=== PATIENT | female | born 1965 | race Caucasian/White ===

== ENCOUNTER 2016-09-27 21:08 | Emergency (ER) | payer OTHER ==
[2016-09-27 21:14] VITALS: BP 155/81; PULSE 88; RESP 20; TEMP 99.1
[2016-09-27] MEDS ORDERED: HYDROmorphone 1 MG/ML 1 ML SYRINGE IM STA (21:19)
[2016-09-27] MEDS ORDERED: SULFAMETHOX-TMP 800-160MG 1 EACH TAB PO STA (21:19)
--- NOTE | 2016-09-27 21:22 | ED ---
Skin/Abscess/FB HPI - General Chief complaint: Skin/Abscess/Foreign Body Stated complaint: Abcess Time Seen by Provider: 09/27/16 21:14 Source: patient, RN notes reviewed Mode of arrival: ambulatory Limitations: no limitations - History of Present Illness Initial comments: 50-year-old female presents emergency Department chief complaint of buttocks abscess. Patient states she noticed some some for yesterday worse today. Patient states she's been soaking all day and states that has opened it started draining out pus. states she's had no history of abscesses like this. She has no history of MRSA. Patient states she's had prior back fracture. Patient states she does normally takes Aleve for pain control with states that it's not helping. Patient denies any fever or chills patient offers no other complaints. - Related Data Home Medications Medication Instructions Recorded Confirmed Albuterol Inhaler [Ventolin Hfa 1 - 2 puff INHALATION Q6HR PRN 01/08/16 02/02/16 Inhaler] Naproxen Sodium [Aleve] 220 mg PO DAILY 01/08/16 02/02/16 Previous Rx's Medication Instructions Recorded Hydrocodone/Acetaminophen [[place] 1 tab PO Q6HR PRN #20 tab 09/27/16 5-325] Sulfamethox-Tmp 800-160Mg [Bactrim 1 each PO Q12HR #20 tab 09/27/16 Ds] Allergies Allergy/AdvReac Type Severity Reaction Status Date / Time ciprofloxacin [From Cipro] AdvReac PAIN IN Verified 09/27/16 21:13 ARMS AND LEGS Review of Systems ROS Statement: Those systems with pertinent positive or pertinent negative responses have been documented in the HPI. ROS Other: All systems not noted in ROS Statement are negative. Past Medical History Past Medical History: Asthma, COPD Additional Past Medical History / Comment(s): vitamin d deficiency; hemorrhoids. CHANGE IN BOWEL MOVENTS-CONSTIPATION. HAS NOTICED SOME BLOOD WITH RECENT BM History of Any Multi-Drug Resistant Organisms: None Reported Past Surgical History: Orthopedic Surgery Additional Past Surgical History / Comment(s): RT BUNIONECTOMY. COLONOSCOPY Past Anesthesia/Blood Transfusion Reactions: Motion Sickness Past Psychological History: Anxiety, Depression Smoking Status: Current some day smoker Past Alcohol Use History: None Reported Past Drug Use History: None Reported - Past Family History Father Family Medical History: Cancer General Exam Limitations: no limitations General appearance: alert, in no apparent distress Respiratory exam: Present: normal lung sounds bilaterally. Absent: respiratory distress, wheezes, rales, rhonchi, stridor Cardiovascular Exam: Present: regular rate, normal rhythm, normal heart sounds. Absent: systolic murmur, diastolic murmur, rubs, gallop, clicks GI/Abdominal exam: Present: soft, normal bowel sounds. Absent: distended, tenderness, guarding, rebound, rigid Skin exam: Present: warm, dry, intact, normal color, other (Left buttocks there is approximately a 2 cm area of erythema firm nonfluctuant with open wound in the center). Absent: rash Course Vital Signs 09/27/16 21:11 Temperature 99.1 F Pulse Rate 88 Respiratory 20 Rate Blood Pressure 155/81 O2 Sat by Pulse 98 Oximetry Medical Decision Making - Medical Decision Making 50-year-old male presented for buttocks abscess. Patient has open and draining abscess. Patient will be given IM pain medications here in emergency department given a dose of Bactrim and discharged on [place] and Bactrim return parameters were discussed with did discuss continuation of warm soaks. Disposition Clinical Impression: Abscess of buttock, left Disposition: HOME SELF-CARE Condition: Stable Instructions: Abscess (ED) Additional Instructions: Please return to the Emergency Department if symptoms worsen or any other concerns. Prescriptions: Hydrocodone/Acetaminophen [[place] 5-325] 1 tab PO Q6HR PRN #20 tab PRN Reason: Pain Sulfamethox-Tmp 800-160Mg [Bactrim Ds] 1 each PO Q12HR #20 tab Referrals: Jennie Amezcua MD [Primary Care Provider] - 1-2 days Time of Disposition: 21:22
== END 2016-09-27 22:05 | disposition home or self-care (01) ==
LOC: EC 21:08
DX: L02.31 Cutaneous abscess of buttock (principal); F17.200 Nicotine dependence, unspecified, uncomplicated; Z79.1 Long term (current) use of non-steroidal anti-inflammatories (NSAID); Z88.1 Allergy status to other antibiotic agents
CPT/HCPCS: 99282; 96372; J1170

== ENCOUNTER 2017-06-22 20:25 | Emergency (ER) | payer OTHER ==
[2017-06-22 20:35] VITALS: BP 115/77; PULSE 87; RESP 20; TEMP 98.2
[2017-06-22] MEDS ORDERED: ACETAMINOPHEN TAB 500 MG TAB PO STA (21:02)
--- NOTE | 2017-06-22 21:23 | XR ---
EXAMINATION TYPE: XR finger LT DATE OF EXAM: 06/22/2017 COMPARISON: NONE HISTORY: Abdomen pain TECHNIQUE: 3 views FINDINGS: There is spurring at the IP joint. There is spurring at the first carpometacarpal joint. I see no fracture nor dislocation. IMPRESSION: Osteoarthritis. No fracture.
[2017-06-22] MEDS ORDERED: DIPH,PERTUS(ACELL)TETVAC-LF 0.5 ML VIAL IM ONE (21:33)
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
== END 2017-06-22 22:08 | disposition home or self-care (01) ==
LOC: EC 20:25
DX: S61.112A Laceration without foreign body of left thumb with damage to nail, initial encounter (principal); Z23 Encounter for immunization; F32.9 Major depressive disorder, single episode, unspecified; F41.9 Anxiety disorder, unspecified; F17.200 Nicotine dependence, unspecified, uncomplicated; Z79.899 Other long term (current) drug therapy; Z88.1 Allergy status to other antibiotic agents; W23.0XXA Caught, crushed, jammed, or pinched between moving objects, initial encounter; Y92.009 Unspecified place in unspecified non-institutional (private) residence as the place of occurrence of the external cause
CPT/HCPCS: 90471; 90715; 99283

== ENCOUNTER → 2019-01-21 | Outpatient (CLI) | payer OTHER ==
--- NOTE | 2019-01-21 20:35 | MR ---
EXAMINATION TYPE: MR knee RT wo con DATE OF EXAM: 01/21/2019 COMPARISON: Plain films unavailable HISTORY: Right knee pain TECHNIQUE: Multiplanar, multisequence imaging of the right knee is performed without IV contrast. FINDINGS: MEDIAL MENISCUS: Abnormal increased signal present within the posterior horn of the medial meniscus i s likely degenerative, there may be some associated calcification. Suspect a root anchor tear is pres ent posteriorly, the appearance is discontinuous LATERAL MENISCUS: Anterior and posterior horns are intact without tear. CRUCIATE LIGAMENTS: The anterior and posterior cruciate ligaments are intact and unremarkable. COLLATERAL LIGAMENTS: The medial collateral ligament and lateral collateral ligament complex are inta ct and unremarkable. EXTENSOR MECHANISM: Visualized quadriceps and patellar tendons are intact. EFFUSION: Suprapatellar joint effusion is present POPLITEAL CYST: No popliteal/mahoney cyst. TRICOMPARTMENT SPACES: There is joint space loss present tricompartmentally CARTILAGE: Grade 3 to grade IV chondromalacia at the posterior patella, medial compartment greater th an lateral compartment BONE MARROW SIGNAL: Subchondral marrow signal changes are present in the medial compartment greater t lozoya lateral OTHER: Tricompartmental marginal spurring present. There are foci of low signal on T1 and T2-weighte d sequences scattered within the joint, greatest in the suprapatellar location measuring 2.6 cm x 1.5 cm x 2.1 cm, smaller focus present at the anterior aspect of the knee joint and multiple foci presen t within the posterior joint space laterally, posterior to the distal metaphyseal femur likely repres ent loose bodies IMPRESSION: Severe osteoarthritis. Root anchor tear posterior horn medial meniscus. Multiple loose bodies suspect ed.
== END | disposition home or self-care (01) ==
LOC: RADMRIMAIN 06:47
PROVIDERS: ATTEND Orthopaedic Surgery
DX: M17.11 Unilateral primary osteoarthritis, right knee (principal); S83.241A Other tear of medial meniscus, current injury, right knee, initial encounter

== ENCOUNTER 2019-02-11 09:44 | Emergency (ER) | payer OTHER ==
[2019-02-11] MEDS ORDERED: SODIUM CHLORIDE 0.9% 1,000 ML IV STA (10:25)
[2019-02-11] MEDS ORDERED: ONDANSETRON 4 MG/2 ML VIAL IVP STA ×2 (10:25→11:27)
--- NOTE | 2019-02-11 10:28 | ED ---
Nausea/Vomiting/Diarrhea HPI - General Chief complaint: Nausea/Vomiting/Diarrhea Stated complaint: vomiting Time Seen by Provider: 02/11/19 10:10 Source: patient Mode of arrival: ambulatory Limitations: no limitations - History of Present Illness Initial comments: Patient is a 53-year-old female presenting to the emergency Department with complaints of nausea, vomiting, diarrhea since early this morning. Patient states her symptoms came on all of a sudden approximately 12:30 AM. Patient states her daughter had same symptoms approximately one week ago. Patient is complaining of abdominal pain but describes it as very generalized from vomiting. Patient denies any abdominal surgeries. Patient denies any fever, cough, chest pain. Patient has no other complaints at this time. Upon arrival to the ER, patient was actively vomiting. Vital signs are stable. - Related Data Home Medications Medication Instructions Recorded Confirmed Naproxen Sodium [Aleve] 220 mg PO DAILY PRN 01/08/16 06/22/17 ALPRAZolam [Xanax] 0.25 mg PO DAILY PRN 06/22/17 06/22/17 Sertraline HCl [Zoloft] 25 mg PO DAILY 06/22/17 06/22/17 Previous Rx's Medication Instructions Recorded Dicyclomine [Bentyl] 20 mg PO TID #20 tablet 02/11/19 Ondansetron Odt [Zofran Odt] 4 mg PO Q8HR PRN #10 tab 02/11/19 Allergies Allergy/AdvReac Type Severity Reaction Status Date / Time ciprofloxacin [From Cipro] AdvReac PAIN IN Verified 06/22/17 20:48 ARMS AND LEGS Review of Systems ROS Statement: Those systems with pertinent positive or pertinent negative responses have been documented in the HPI. ROS Other: All systems not noted in ROS Statement are negative. Past Medical History Past Medical History: Asthma, COPD Additional Past Medical History / Comment(s): vitamin d deficiency; hemorrhoids. CHANGE IN BOWEL MOVENTS-CONSTIPATION. HAS NOTICED SOME BLOOD WITH RECENT BM History of Any Multi-Drug Resistant Organisms: None Reported Past Surgical History: Orthopedic Surgery Additional Past Surgical History / Comment(s): RT BUNIONECTOMY. COLONOSCOPY Past Anesthesia/Blood Transfusion Reactions: Motion Sickness Past Psychological History: Anxiety, Depression Smoking Status: Current every day smoker Past Alcohol Use History: None Reported Past Drug Use History: Marijuana - Past Family History Father Family Medical History: Cancer General Exam - General Exam Comments Initial Comments: GENERAL: Patient is curled up on her side, actively dry heaving. HEAD: Atraumatic, normocephalic. EYES: Pupils equal round and reactive to light, extraocular movements intact, sclera anicteric, conjunctiva are normal. ENT: Dry mucous membranes. NECK: Normal range of motion, supple without lymphadenopathy or JVD. LUNGS: Breath sounds clear to auscultation bilaterally and equal. No wheezes rales or rhonchi. HEART: Regular rate and rhythm without murmurs, rubs or gallops. ABDOMEN: Patient has generalized abdominal soreness, no severe tenderness in any of the 4 quadrants. Soft, hyperactive bowel sounds. No guarding, no rebound. No masses appreciated. : Deferred EXTREMITIES: Normal range of motion, no pitting or edema. No clubbing or cyanosis. NEUROLOGICAL: Normal speech, normal gait. SKIN: Warm, Dry, normal turgor, no rashes or lesions noted. Limitations: no limitations Course Vital Signs 02/11/19 02/11/19 02/11/19 10:04 11:41 12:40 Temperature 97.6 F 98 F Pulse Rate 71 56 L 63 Respiratory 20 18 18 Rate Blood Pressure 136/76 131/67 137/82 O2 Sat by Pulse 99 99 98 Oximetry Medical Decision Making - Medical Decision Making Patient is a 53-year-old female presenting with nausea, vomiting 12 hours. Patient has mild diffuse abdominal pain, no severe pain or tenderness on exam. Lab work shows leukocytosis at 16.3, likely reactive. Rest of lab work is unremarkable. Patient was given fluids, Zofran and Reglan and she has been resting comfortably. Patient is stable for discharge at this time. Patient will be discharged home with Zofran and Bentyl. Patient is agreement with this plan of care. Return parameters were discussed with the patient she verbalized understanding. Discussed with Dr. Day. - Lab Data Result diagrams: 02/11/19 10:40 02/11/19 10:40 Lab Results 02/11/19 02/11/19 Range/Units 10:40 10:40 WBC 16.3 H (3.8-10.6) k/uL RBC 5.07 (3.80-5.40) m/uL Hgb 14.9 (11.4-16.0) gm/dL Hct 44.3 (34.0-46.0) % MCV 87.3 (80.0-100.0) fL MCH 29.3 (25.0-35.0) pg MCHC 33.6 (31.0-37.0) g/dL RDW 13.1 (11.5-15.5) % Plt Count 357 (150-450) k/uL Neutrophils % 93 % Lymphocytes % 5 % Monocytes % 2 % Eosinophils % 0 % Basophils % 0 % Neutrophils # 15.1 H (1.3-7.7) k/uL Lymphocytes # 0.8 L (1.0-4.8) k/uL Monocytes # 0.3 (0-1.0) k/uL Eosinophils # 0.0 (0-0.7) k/uL Basophils # 0.0 (0-0.2) k/uL Sodium 141 (137-145) mmol/L Potassium 4.2 (3.5-5.1) mmol/L Chloride 107 (98-107) mmol/L Carbon Dioxide 25 (22-30) mmol/L Anion Gap 9 mmol/L BUN 18 H (7-17) mg/dL Creatinine 0.68 (0.52-1.04) mg/dL Est GFR (CKD-EPI)AfAm >90 (>60 ml/min/1.73 sqM) Est GFR (CKD-EPI)NonAf >90 (>60 ml/min/1.73 sqM) Glucose 159 H (74-99) mg/dL Calcium 9.6 (8.4-10.2) mg/dL Total Bilirubin 0.4 (0.2-1.3) mg/dL AST 28 (14-36) U/L ALT 29 (9-52) U/L Alkaline Phosphatase 88 (38-126) U/L Total Protein 7.2 (6.3-8.2) g/dL Albumin 4.5 (3.5-5.0) g/dL Amylase 50 (30-110) U/L Lipase 64 (23-300) U/L Disposition Clinical Impression: Gastroenteritis, Nausea vomiting and diarrhea Disposition: HOME SELF-CARE Condition: Stable Instructions (If sedation given, give patient instructions): Acute Nausea and Vomiting (ED) Additional Instructions: Please return to the Emergency Department if symptoms worsen or any other concerns. Take Zofran as needed for nausea. And Bentyl as needed for abdominal cramping. Prescriptions: Dicyclomine [Bentyl] 20 mg PO TID #20 tablet Ondansetron Odt [Zofran Odt] 4 mg PO Q8HR PRN #10 tab PRN Reason: Nausea Is patient prescribed a controlled substance at d/c from ED?: No Referrals: Jennie Amezcua MD [Primary Care Provider] - 1-2 days
[2019-02-11 11:03] LABS: Basophils % (A) 0 %; Eosinophils % (A) 0 %; HCT 44.3 % (34.0-46.0); HGB 14.9 gm/dL (11.4-16.0); Lymphocytes # (A) 0.8 k/uL (1.0-4.8); Lymphocytes % (A) 5 %; MCH 29.3 pg (25.0-35.0); MCHC 33.6 g/dL (31.0-37.0); MCV 87.3 fL (80.0-100.0); Mean Platelet Volume 6.5; Monocytes # (A) 0.3 k/uL (0-1.0); Monocytes % (A) 2 %; Neutrophils # (A) 15.1 k/uL (1.3-7.7); Neutrophils % (A) 93 %; Platelet Count 357 k/uL (150-450); RBC 5.07 m/uL (3.80-5.40); RDW 13.1 % (11.5-15.5); WBC 16.3 k/uL (3.8-10.6)
[2019-02-11 11:10] LABS: ALT 29 U/L (9-52); AST 28 U/L (14-36); African American GFR (CKD) >90 (>60 ml/min/1.73 sqM); Albumin 4.5 g/dL (3.5-5.0); Alkaline Phosphatase 88 U/L (38-126); Amylase 50 U/L (30-110); Anion Gap 9 mmol/L; Blood Urea Nitrogen 18 mg/dL (7-17); Calcium 9.6 mg/dL (8.4-10.2); Carbon Dioxide 25 mmol/L (22-30); Chloride 107 mmol/L (98-107); Glucose 159 mg/dL (74-99); Non-African American GFR(CKD) >90 (>60 ml/min/1.73 sqM); Potassium 4.2 mmol/L (3.5-5.1); Sodium 141 mmol/L (137-145); Total Bilirubin 0.4 mg/dL (0.2-1.3); Total Protein 7.2 g/dL (6.3-8.2)
[2019-02-11 11:42] VITALS: RESP 18
[2019-02-11] MEDS ORDERED: METOCLOPRAMIDE 5 MG/ML 2 ML VIAL IVP STA (12:08)
[2019-02-11] MEDS ORDERED: ONDANSETRON 4 MG ODT STARTER PACK 2 TAB BTL PO STA (12:12)
[2019-02-11 12:41] VITALS: BP 137/82; PULSE 63; TEMP 98
== END 2019-02-11 12:40 | disposition home or self-care (01) ==
LOC: EC 09:44
DX: K52.9 Noninfective gastroenteritis and colitis, unspecified (principal); D72.829 Elevated white blood cell count, unspecified; F32.9 Major depressive disorder, single episode, unspecified; F41.9 Anxiety disorder, unspecified; F17.200 Nicotine dependence, unspecified, uncomplicated; Z88.1 Allergy status to other antibiotic agents; Z79.899 Other long term (current) drug therapy
CPT/HCPCS: 36415; 80053; 82150; 83690; 85025; 99284; 96374; 96375; 96376; 96361; J2765; J2405; S0119

== ENCOUNTER → 2019-04-05 | Outpatient (CLI) | payer OTHER ==
--- NOTE | 2019-04-08 09:47 | MM ---
Reason for exam: screening (asymptomatic). Last mammogram was performed 3 years and 7 months ago. Physical Findings: A clinical breast exam by your physician is recommended on an annual basis and results should be correlated with mammographic findings. MG Screening Mammo w CAD Bilateral CC and MLO view(s) were taken. Prior study comparison: September 15, 2015, bilateral MG screening mammo w CAD. May 20, 2014, bilateral MG screening mammo w CAD. The breast tissue is heterogeneously dense. This may lower the sensitivity of mammography. Benign appearing bilateral calcifications. No suspicious abnormality. No significant changes when compared with prior studies. ASSESSMENT: Benign, BI-RAD 2 RECOMMENDATION: Routine screening mammogram of both breasts in 1 year.
== END | disposition home or self-care (01) ==
LOC: RADMAMWWP 09:53
PROVIDERS: ATTEND Family Medicine
DX: Z12.31 Encounter for screening mammogram for malignant neoplasm of breast (principal)
CPT/HCPCS: 77067

== ENCOUNTER 2019-05-25 12:18 | Observation (INO) | payer OTHER ==
[2019-05-25] MEDS ORDERED: ONDANSETRON 4 MG/2 ML VIAL IVP STA (13:04)
[2019-05-25] MEDS ORDERED: MECLIZINE 12.5 MG TAB PO STA (13:04)
[2019-05-25] MEDS ORDERED: SODIUM CHLORIDE 0.9% 1,000 ML IV STA (13:04)
[2019-05-25 13:37] LABS: Basophils # (A) 0.1 k/uL (0-0.2); Basophils % (A) 1 %; Eosinophils # (A) 0.5 k/uL (0-0.7); Eosinophils % (A) 3 %; HCT 47.9 % (34.0-46.0); HGB 15.5 gm/dL (11.4-16.0); Lymphocytes % (A) 13 %; MCH 28.7 pg (25.0-35.0); MCHC 32.3 g/dL (31.0-37.0); MCV 88.9 fL (80.0-100.0); Mean Platelet Volume 7.5; Monocytes # (A) 0.6 k/uL (0-1.0); Monocytes % (A) 4 %; Neutrophils # (A) 11.5 k/uL (1.3-7.7); Neutrophils % (A) 77 %; Platelet Count 355 k/uL (150-450); RBC 5.39 m/uL (3.80-5.40); RDW 13.2 % (11.5-15.5); WBC 14.9 k/uL (3.8-10.6)
[2019-05-25 13:45] LABS: ALT 21 U/L (4-34); AST 30 U/L (14-36); African American GFR (CKD) >90 (>60 ml/min/1.73 sqM); Albumin 4.3 g/dL (3.5-5.0); Alkaline Phosphatase 84 U/L (38-126); Anion Gap 7 mmol/L; Blood Urea Nitrogen 13 mg/dL (7-17); Calcium 9.3 mg/dL (8.4-10.2); Carbon Dioxide 29 mmol/L (22-30); Chloride 104 mmol/L (98-107); Glucose 99 mg/dL (74-99); Non-African American GFR(CKD) >90 (>60 ml/min/1.73 sqM); Potassium 4.3 mmol/L (3.5-5.1); Sodium 140 mmol/L (137-145); Total Bilirubin 0.2 mg/dL (0.2-1.3); Total Protein 6.9 g/dL (6.3-8.2)
--- NOTE | 2019-05-25 13:50 | ED ---
Dizziness HPI - General Chief Complaint: Dizziness Stated Complaint: Vomiting/Dizzy Time Seen by Provider: 05/25/19 12:20 Source: patient Mode of arrival: ambulatory Limitations: no limitations - History of Present Illness Initial Comments: The patient is a 53 year old female with past medical history of depression presents emergency room with reported vertiginous symptoms. She states that she was treated for an ear infection approximately 10 days ago. She went to an urgent care complaining of left ear pain. She is placed on Augmentin, certrizine and a nasal spray. States that she is on her last dose of antibiotics. She awoke this morning with significant room spinning which is worse when she changes positions. No history of vertigo in the past. Admits that the left ear pain has only slightly improved and now she has left maxillary pain. She denies any hearing changes. No headaches or visual changes. Denies any fevers or chills. Admits to nausea and vomiting. Denies hematemesis. No chest pain or shortness of breath. Denies syncope or presyncope. No ataxia with ambulation. Denies abdominal pain. No changes in her bowel or bladder habits. No recent chiropractic manipulations. There are no other alleviating, precipitating or modifying factors - Related Data Home Medications Medication Instructions Recorded Confirmed Naproxen Sodium [Aleve] 440 mg PO BID PRN 01/08/16 05/25/19 Cetirizine HCl 10 mg PO DAILY 05/25/19 05/25/19 Fluticasone Propionate [Flonase 1 spray EA NOSTRIL BID 05/25/19 05/25/19 Allergy Relief] Sertraline HCl [Zoloft] 100 mg PO HS 05/25/19 05/25/19 Zinc 50 mg PO DAILY 05/25/19 05/25/19 Previous Rx's Medication Instructions Recorded Cefuroxime Axetil [Ceftin] 500 mg PO BID 5 Days #10 tab 05/27/19 Allergies Allergy/AdvReac Type Severity Reaction Status Date / Time ciprofloxacin [From Cipro] AdvReac PAIN IN Verified 05/25/19 16:40 ARMS AND LEGS Review of Systems ROS Statement: Those systems with pertinent positive or pertinent negative responses have been documented in the HPI. ROS Other: All systems not noted in ROS Statement are negative. Past Medical History Past Medical History: Asthma, COPD Additional Past Medical History / Comment(s): vitamin d deficiency; hemorrhoids. CHANGE IN BOWEL MOVENTS-CONSTIPATION. HAS NOTICED SOME BLOOD WITH RECENT BM History of Any Multi-Drug Resistant Organisms: None Reported Past Surgical History: Orthopedic Surgery Additional Past Surgical History / Comment(s): RT BUNIONECTOMY. COLONOSCOPY Past Anesthesia/Blood Transfusion Reactions: Motion Sickness Past Psychological History: Anxiety, Depression Smoking Status: Current every day smoker Past Alcohol Use History: None Reported Past Drug Use History: Marijuana - Past Family History Father Family Medical History: Cancer General Exam Limitations: no limitations General appearance: alert, in no apparent distress Head exam: Present: atraumatic, normocephalic, normal inspection Eye exam: Present: normal appearance, PERRL, EOMI. Absent: scleral icterus, c onjunctival injection, periorbital swelling ENT exam: Present: mucous membranes moist, TM's normal bilaterally, normal external ear exam, other (tenderness left maxillary and left frontal sinuses) Neck exam: Present: normal inspection. Absent: tenderness, meningismus, lymphadenopathy Respiratory exam: Present: normal lung sounds bilaterally. Absent: respiratory distress, wheezes, rales, rhonchi, stridor Cardiovascular Exam: Present: regular rate, normal rhythm, normal heart sounds. Absent: systolic murmur, diastolic murmur, rubs, gallop, clicks GI/Abdominal exam: Present: soft, normal bowel sounds. Absent: distended, tenderness, guarding, rebound, rigid Extremities exam: Present: normal inspection, full ROM, normal capillary refill. Absent: tenderness, pedal edema, joint swelling, calf tenderness Back exam: Present: normal inspection Neurological exam: Present: alert, oriented X3, CN II-XII intact Psychiatric exam: Present: normal affect, normal mood Skin exam: Present: warm, dry, intact, normal color. Absent: rash Course Vital Signs 05/25/19 05/25/19 05/25/19 12:21 13:37 14:59 Temperature 97.6 F Pulse Rate 60 50 L 57 L Respiratory 18 16 16 Rate Blood Pressure 169/82 114/73 106/68 O2 Sat by Pulse 99 100 98 Oximetry 05/25/19 05/25/19 16:00 17:07 Temperature 97.8 F 98.1 F Pulse Rate 52 L 53 L Respiratory 16 16 Rate Blood Pressure 111/76 111/69 O2 Sat by Pulse 97 98 Oximetry EKG Findings - EKG Comments: EKG Findings:: EKG demonstrates a sinus bradycardia with a ventricular rate of 50. AK interval 154. QRS 88. QTC of 446. No acute ST segment elevations or depressions concerning for ischemic changes. No signs of high degree block. Medical Decision Making - Medical Decision Making Upon arrival the patient was placed into room 26. A thorough history and physical exam was performed. No rotary or horizontal nystagmus. Peripheral IV was established the patient was given informal grams of Zofran for nausea and 25 mg of meclizine and 4 vertiginous symptoms. Laboratory studies were conducted. White blood count is 14.9. Remainder of the laboratory studies are normal. I reevaluated the patient after a liter bolus of normal saline and the patient continues to report vertiginous symptoms. Because of this I did provide her with 5 mg of Valium and performed a CT of her brain as well as CT angiography for her vertiginous symptoms. He demonstrates no hemodynamically significant stenosis, focal occlusion or aneurysmal outpouching. CT of the patient's brain demonstrates no acute intracranial hemorrhage, mass effect or midline shift. Severe left knee x-ray sinusitis, more moderate of the ethmoid sinuses and right maxillary sinus. Complexity of the debris within the left maxillary sinus and bowing of the medial wall could represent an underlying mucocele or atypical infection with hemorrhage and debris. Alternatively fungal infection. I discussed the case with the patient and she does report to continued improvement in her symptoms. As the patient has failed outpatient therapy for these symptoms I did recommend inpatient treatment with antibiotics. The patient was given a dose of Zosyn after blood cultures were obtained. I called and discussed the case with Dr. Mendes who accepted admission for the patient. I will place ENT on consult. The patient is awaiting a bed on the floor - Lab Data Result diagrams: 05/27/19 07:12 05/27/19 07:12 Lab Results 05/25/19 05/25/19 05/25/19 Range/Units 13:24 13:24 13:24 WBC 14.9 H (3.8-10.6) k/uL RBC 5.39 (3.80-5.40) m/uL Hgb 15.5 (11.4-16.0) gm/dL Hct 47.9 H (34.0-46.0) % MCV 88.9 (80.0-100.0) fL MCH 28.7 (25.0-35.0) pg MCHC 32.3 (31.0-37.0) g/dL RDW 13.2 (11.5-15.5) % Plt Count 355 (150-450) k/uL Neutrophils % 77 % Lymphocytes % 13 % Monocytes % 4 % Eosinophils % 3 % Basophils % 1 % Neutrophils # 11.5 H (1.3-7.7) k/uL Lymphocytes # 2.0 (1.0-4.8) k/uL Monocytes # 0.6 (0-1.0) k/uL Eosinophils # 0.5 (0-0.7) k/uL Basophils # 0.1 (0-0.2) k/uL Sodium 140 (137-145) mmol/L Potassium 4.3 (3.5-5.1) mmol/L Chloride 104 (98-107) mmol/L Carbon Dioxide 29 (22-30) mmol/L Anion Gap 7 mmol/L BUN 13 (7-17) mg/dL Creatinine 0.70 (0.52-1.04) mg/dL Est GFR (CKD-EPI)AfAm >90 (>60 ml/min/1.73 sqM) Est GFR (CKD-EPI)NonAf >90 (>60 ml/min/1.73 sqM) Glucose 99 (74-99) mg/dL Calcium 9.3 (8.4-10.2) mg/dL Total Bilirubin 0.2 (0.2-1.3) mg/dL AST 30 (14-36) U/L ALT 21 (4-34) U/L Alkaline Phosphatase 84 (38-126) U/L Troponin I <0.012 (0.000-0.034) ng/mL Total Protein 6.9 (6.3-8.2) g/dL Albumin 4.3 (3.5-5.0) g/dL Disposition Clinical Impression: Vertigo, Left maxillary sinusitis, Failure of outpatient treatment Disposition: ADMITTED IP TO THIS [facility] Condition: Stable Is patient prescribed a controlled substance at d/c from ED?: No Decision to Admit Reason: Admit from EC Decision Date: 05/25/19 Decision Time: 16:02
[2019-05-25] MEDS ORDERED: DIAZEPAM 5 MG/ML 2 ML INJ IVP STA (14:17)
--- NOTE | 2019-05-25 15:00 | CT ---
EXAMINATION TYPE: CT brain wo con DATE OF EXAM: 05/25/2019 COMPARISON: NONE HISTORY: dizziness and vomiting CT DLP: 1097.8 mGycm. Automated Exposure Control for Dose Reduction was Utilized. TECHNIQUE: CT scan of the head is performed without contrast. FINDINGS: There is no acute intracranial hemorrhage, mass effect, or midline shift identified. The ventricles and sulci are within normal limits in size. The globes are intact and unremarkable. There is high density complex mixed attenuation debris filling the entire visualized portion of the l eft maxillary sinus with bowing of the medial wall of the left maxillary sinus and extension of mucos al thickening into the nasopharynx. Moderate mucosal thickening is also seen in the ethmoid sinuses a nd polypoid mucosal thickening of the right maxillary sinus. Sphenoid sinuses and frontal sinuses as well as mastoid air cells are well aerated. IMPRESSION: 1. No acute intracranial hemorrhage, mass effect, or midline shift is seen. 2. Severe left maxillary sinusitis, more moderate of the ethmoid sinuses and right maxillary sinus. C omplexity of the debris within the left maxillary sinus and bowing of the medial wall could represent an underlying mucocele or atypical infection with hemorrhage and debris. Alternatively fungal infect ion is possible.
--- NOTE | 2019-05-25 15:18 | CT ---
EXAMINATION TYPE: CT angio head neck DATE OF EXAM: 05/25/2019 HISTORY: Dizziness COMPARISON: CT brain of the same day CT DLP: 420.5 mGycm. Automated Exposure Control for Dose Reduction was Utilized. TECHNIQUE: CTA scan of the neck is performed , patient injected with 100 mL of Isovue 370, axial naye ges are obtained, coronal and sagittal reformatted images are reviewed. Three-D reconstructed images are created on an independent workstation and reviewed. FINDINGS: Carotid/Vascular Structures: There is a conventional three-vessel branch pattern of the aortic arch. The common carotid arteries, carotid bulbs, and cervical portions of the internal carotid arteries ar e patent and unremarkable. The vertebral arteries are patent and codominant. Vertebrobasilar system i s patent and unremarkable. Intracranial vasculature demonstrates no hemodynamically significant steno sis or focal occlusion. Left posterior commuting artery is not seen and [place] cannot be co nsidered intact. No sizable aneurysm is seen of the major intracranial vasculature. Other: Findings in the brain are discussed on the CT brain of the dislocation of the same date. Lung apices are well aerated. Mild degenerative change of the cervical spine. IMPRESSION: No hemodynamically significant stenosis, focal occlusion or aneurysmal outpouching of th e major arterial vasculature of the head or neck.
[2019-05-25] MEDS ORDERED: PIPERACILLIN-TAZOBACTAM 3.375 GM in SODIUM CHLORIDE 0.9% 100 ML IVPB STA (15:29)
[2019-05-25] MEDS ORDERED: NALOXONE 0.4 MG/ML 1 ML VIAL IV PRN (16:02)
[2019-05-25] MEDS ORDERED: ONDANSETRON 4 MG/2 ML VIAL IVP PRN (16:02)
[2019-05-25] MEDS: SODIUM CHLORIDE 0.9% 1,000 ML IV SCH ×2 (16:42→23:54)
[2019-05-25] MEDS: SERTRALINE 100 MG TAB PO SCH (20:28)
[2019-05-25] MEDS: MECLIZINE 25 MG TAB PO PRN (20:28)
--- NOTE | 2019-05-25 22:55 | P.HPIM ---
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 Patient is being treated for left ear infectionfor the past 10 days. Patient was seen at urgent care facility and was started on antibiotics in the form of Augmentin, citrizine and nasal spray. Patient completed antibiotic course. She woke up in the morning withsensation of room spinning and dizziness and lightheadedness. Patient was also having left ear pain. No headache. Denied any visual changes or decreased hearing. No fever no chills. Patient did have nausea at home and had an episode ofvomiting while in the ER. No complaints of chest pain or short. No Abdominal pain or diarrhea. No dysuria or hematuria. eKG showed sinus bradycardia. CT head showed no acute intracranial process. Severe left maxillary sinusitis. Right moderateethmoid and right maxillary sinusitis.complexity of the Debris wit hin theleft maxillary sinus. WBC 14.9. remaining electrolytes within normal limits. Review of Systems Constitutional: Patient denies any fever or chills . No generalized weakness or weight loss. Abdomen: Patient denied nausea vomiting and diarrhea and abdominal pain. Cardiovascular: Patient denies any chest pain or short of breath no palpitations. Respiratory: patient denied any cough is from production. No shortness of breath Neurologic: Patient denied any numbness or tingling headache.left ear pain. Dizziness and lightheadedness and roomspinning sensation Musculoskeletal: Patient denies any complaints of joint swelling or deformity. Skin: Negative Psychiatric: Negative Endocrine: No heat or cold intolerance. No recent weight gain. Genitourinary: No dysuria or hematuria. All other 14 point ROS negative except the above Past Medical History Past Medical History: Asthma, COPD Additional Past Medical History / Comment(s): vitamin d deficiency; History of Any Multi-Drug Resistant Organisms: None Reported Past Surgical History: Orthopedic Surgery Additional Past Surgical History / Comment(s): RT BUNIONECTOMY. COLONOSCOPY Past Anesthesia/Blood Transfusion Reactions: Motion Sickness Past Psychological History: Anxiety, Depression Smoking Status: Current every day smoker Past Alcohol Use History: None Reported Additional Past Alcohol Use History / Comment(s): SMOKING 1/2 PPD OFF AND ON SINCE AGE 17 Past Drug Use History: Marijuana - Past Family History Father Family Medical History: Cancer Medications and Allergies Home Medications Medication Instructions Recorded Confirmed Type Naproxen Sodium [Aleve] 440 mg PO BID PRN 01/08/16 05/25/19 History Amoxicillin/Potassium Clav 1 tab PO BID 05/25/19 05/25/19 History [Augmentin 875-125 Tablet] Cetirizine HCl 10 mg PO DAILY 05/25/19 05/25/19 History Fluticasone Propionate [Flonase 1 spray EA NOSTRIL BID 05/25/19 05/25/19 History Allergy Relief] Sertraline HCl [Zoloft] 100 mg PO HS 05/25/19 05/25/19 History Zinc 50 mg PO DAILY 05/25/19 05/25/19 History Allergies Allergy/AdvReac Type Severity Reaction Status Date / Time ciprofloxacin [From Cipro] AdvReac PAIN IN Verified 05/25/19 16:40 ARMS AND LEGS Physical Exam Vitals: Vital Signs Temp Pulse Pulse Resp BP BP Pulse Ox 05/25/19 20:00 18 05/25/19 19:15 97.6 F 50 L 17 127/73 96 05/25/19 17:24 97.4 F L 52 L 14 113/68 97 05/25/19 17:07 98.1 F 53 L 16 111/69 98 05/25/19 16:00 97.8 F 52 L 16 111/76 97 05/25/19 14:59 57 L 16 106/68 98 05/25/19 13:37 50 L 16 114/73 100 05/25/19 12:21 97.6 F 60 18 169/82 99 Intake and Output 05/25/19 05/25/19 05/25/19 06:59 14:59 22:59 Intake Total 2095 Balance 2095 Intake: Amount of Fluid Infused ( 1200 ml) Intake, IV Titration 600 Amount Sodium Chloride 0.9% 1, 600 000 ml @ 100 mls/hr IV . Q10H [facility] Rx#:[id number] Oral 296 Other: # Voids 1 Weight 73.936 kg 73.936 kg PHYSICAL EXAMINATION: Patient is lying in the bed comfortably, no acute distress, awake alert and oriented.. HEENT: Normocephalic. Neck is supple. Pupils reactive. Nostrils clear. Oral cavity is moist. Ears reveal no drainage. Neck reveals no JVD, carotid bruits, or thyromegaly. CHEST EXAMINATION: Trachea is central. Symmetrical expansion. Lung suggs clear to auscultation and percussion. CARDIAC: Normal S1, S2 with no gallops. No murmurs ABDOMEN: Soft. Bowel sounds normal. No organomegaly. No abdominal bruits. Extremities: reveal no edema. No clubbing or cyanosis Neurologically awake, alert, oriented x3 with well-coordinated movements. No focal deficits noted Skin: No rash or skin lesions. Psychiatric: Coperative. Nonsuicidal Musculoskeletal: No joint swelling or deformity. Normal range of motion. Results CBC & Chem 7: 05/25/19 13:24 05/25/19 13:24 Labs: Abnormal Lab Results - Last 24 Hours (Table) 05/25/19 Range/Units 13:24 WBC 14.9 H (3.8-10.6) k/uL Hct 47.9 H (34.0-46.0) % Neutrophils # 11.5 H (1.3-7.7) k/uL Thrombosis Risk Factor Assmnt - DVT/VTE Prophylaxis DVT/VTE Prophylaxis: Pharmacologic Prophylaxis ordered - Choose All That Apply Each Factor Represents 1 point: Age 41-60 years Thrombosis Risk Factor Assessment Total Risk Factor Score: 1 Thrombosis Risk Factor Assessment Level: Low Risk Assessment and Plan Assessment: acute severe left maxillary sinusitis with possible mucocele Failed outpatient antibiotic therapy. acute vertigo Asthma/COPD not in exacerbation anxiety/Depression ongoing nicotine addiction Occasional marijuana use dVT prophylaxis. plan: Patient will be continued on antibiotics in the form of Zosyn. Meclizine when necessary fordizziness and lightheadedness and vertigo. ENT will be consulted and further recommendations based on the clinical course. smoking cessation has been counseled extensively. Time with Patient: Greater than 30
[2019-05-25] MEDS: PIPERACILLIN-TAZOBACTAM 3.375 GM in SODIUM CHLORIDE 0.9% 100 ML IVPB SCH (23:50)
[2019-05-25] MEDS: HEPARIN SODIUM,PORCINE 5,000 UNIT/ML 1 ML VIAL SQ SCH (23:51)
[2019-05-26] MEDS: PIPERACILLIN-TAZOBACTAM 3.375 GM in SODIUM CHLORIDE 0.9% 100 ML IVPB SCH ×2 (07:50→15:56)
[2019-05-26] MEDS: ZINC SULFATE 220 MG CAP PO SCH (07:51)
[2019-05-26] MEDS: HEPARIN SODIUM,PORCINE 5,000 UNIT/ML 1 ML VIAL SQ SCH ×2 (07:51→15:57)
[2019-05-26] MEDS: MECLIZINE 25 MG TAB PO PRN ×2 (08:11→20:53)
[2019-05-26] MEDS: SODIUM CHLORIDE 0.9% 1,000 ML IV SCH ×2 (15:57→20:46)
[2019-05-26] MEDS: SERTRALINE 100 MG TAB PO SCH (20:49)
--- NOTE | 2019-05-26 23:18 | P.PN ---
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 Patient is being treated for left ear infectionfor the past 10 days. Patient was seen at urgent care facility and was started on antibiotics in the form of Augmentin, citrizine and nasal spray. Patient completed antibiotic course. She woke up in the morning withsensation of room spinning and dizziness and lightheadedness. Patient was also having left ear pain. No headache. Denied any visual changes or decreased hearing. No fever no chills. Patient did have nausea at home and had an episode ofvomiting while in the ER. No complaints of chest pain or short. No Abdominal pain or diarrhea. No dysuria or hematuria. eKG showed sinus bradycardia. CT head showed no acute intracranial process. Severe left maxillary sinusitis. Right moderateethmoid and right maxillary sinusitis.complexity of the Debris wi thin theleft maxillary sinus. WBC 14.9. remaining electrolytes within normal limits. 05/26/2019 Patient denied any complaints of chest pain or shortness of breath. Left ear pain and dizziness is much improved. Currently being continued on antibiotics in the form of Zosyn. ENT was consulted. Patient has been afebrile. No nausea vomiting or abdominal pain or diarrhea. Current medications reviewed. Objective - Vital Signs Vital signs: Vital Signs Temp 98.4 F 05/26/19 07:00 Pulse 65 05/26/19 07:00 Resp 17 05/26/19 07:00 BP 145/78 05/26/19 07:00 Pulse Ox 97 05/26/19 07:00 Intake & Output 05/25/19 05/26/19 05/26/19 18:59 06:59 18:59 Intake Total 1496 1200 Balance 1496 1200 Weight 73.936 kg Intake: Amount of Fluid Infused ( 1200 ml) Intake, IV Titration 1200 Amount Sodium Chloride 0.9% 1, 1200 000 ml @ 100 mls/hr IV . Q10H [facility] Rx#:[id number] Oral 296 Other: # Voids 1 - Exam PHYSICAL EXAMINATION: Patient is lying in the bed comfortably, no acute distress, awake alert and or iented.. HEENT: Normocephalic. Neck is supple. Pupils reactive. Nostrils clear. Oral cavity is moist. Ears reveal no drainage. Tenderness over the left maxilla and also on the mastoid process Neck reveals no JVD, carotid bruits, or thyromegaly. CHEST EXAMINATION: Trachea is central. Symmetrical expansion. Lung suggs clear to auscultation and percussion. CARDIAC: Normal S1, S2 with no gallops. No murmurs ABDOMEN: Soft. Bowel sounds normal. No organomegaly. No abdominal bruits. Extremities: reveal no edema. No clubbing or cyanosis Neurologically awake, alert, oriented x3 with well-coordinated movements. No focal deficits noted Skin: No rash or skin lesions. Psychiatric: Coperative. Nonsuicidal Musculoskeletal: No joint swelling or deformity. Normal range of motion. - Labs CBC & Chem 7: 05/25/19 13:24 05/25/19 13:24 Labs: Abnormal Lab Results - Last 24 Hours (Table) 05/25/19 Range/Units 13:24 WBC 14.9 H (3.8-10.6) k/uL Hct 47.9 H (34.0-46.0) % Neutrophils # 11.5 H (1.3-7.7) k/uL Assessment and Plan Assessment: acute severe left maxillary sinusitis with possible mucocele Failed outpatient antibiotic therapy. acute vertigo Asthma/COPD not in exacerbation anxiety/Depression ongoing nicotine addiction Occasional marijuana use dVT prophylaxis. plan: Patient will be continued on antibiotics in the form of Zosyn. Meclizine when necessary fordizziness and lightheadedness and vertigo. ENT was consulted and further recommendations based on the clinical course. smoking cessation has been counseled extensively. Time with Patient: Greater than 30
[2019-05-27] MEDS: PIPERACILLIN-TAZOBACTAM 3.375 GM in SODIUM CHLORIDE 0.9% 100 ML IVPB SCH ×2 (00:34→08:45)
[2019-05-27] MEDS: HEPARIN SODIUM,PORCINE 5,000 UNIT/ML 1 ML VIAL SQ SCH ×2 (00:34→08:45)
[2019-05-27 07:44] VITALS: BP 166/87; PULSE 73; RESP 18; TEMP 98.2
[2019-05-27 08:41] LABS: Basophils # (A) 0.1 k/uL (0-0.2); Basophils % (A) 1 %; Eosinophils # (A) 0.6 k/uL (0-0.7); Eosinophils % (A) 6 %; HCT 45.2 % (34.0-46.0); HGB 14.5 gm/dL (11.4-16.0); Lymphocytes # (A) 3.5 k/uL (1.0-4.8); Lymphocytes % (A) 35 %; MCHC 32.1 g/dL (31.0-37.0); MCV 90.3 fL (80.0-100.0); Mean Platelet Volume 7.9; Monocytes # (A) 0.7 k/uL (0-1.0); Monocytes % (A) 7 %; Neutrophils # (A) 4.7 k/uL (1.3-7.7); Neutrophils % (A) 48 %; Platelet Count 344 k/uL (150-450); RDW 13.1 % (11.5-15.5); WBC 9.9 k/uL (3.8-10.6)
[2019-05-27] MEDS: SODIUM CHLORIDE 0.9% 1,000 ML IV SCH (08:43)
[2019-05-27] MEDS: ZINC SULFATE 220 MG CAP PO SCH (08:45)
[2019-05-27 08:46] LABS: African American GFR (CKD) >90 (>60 ml/min/1.73 sqM); Anion Gap 5 mmol/L; Blood Urea Nitrogen 11 mg/dL (7-17); Carbon Dioxide 30 mmol/L (22-30); Chloride 105 mmol/L (98-107); Glucose 100 mg/dL (74-99); Non-African American GFR(CKD) 84 (>60 ml/min/1.73 sqM); Potassium 4.7 mmol/L (3.5-5.1); Sodium 140 mmol/L (137-145)
[2019-05-27] MEDS ORDERED: methylPREDNISolone SOD SUCCI 125 MG/2 ML VIAL IV STA (12:35)
--- NOTE | 2019-05-27 12:50 | P.DS ---
Providers Date of admission: 05/25/19 16:05 Expected date of discharge: 05/27/19 Attending physician: Art Craaballo MD Consults: 05/25/19 16:03 Consult Physician Urgent Consulting Provider: Tigre [place] Consult Reason/Comments: acute left maxillary sinusitis Do you want consulting provider notified?: Yes Primary care physician: Jennie Amezcua Hospital Course: Final Diagnoses: acute severe left maxillary sinusitis with possible mucocele Failed outpatient antibiotic therapy. 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 Patient is being treated for left ear infectionfor the past 10 days. Patient was seen at urgent care facility and was started on antibiotics in the form of Augmentin, citrizine and nasal spray. Patient completed antibiotic course. She woke up in the morning withsensation of room spinning and dizziness and lightheadedness. Patient was also having left ear pain. No headache. Denied any visual changes or decreased hearing. No fever no chills. Patient did have nausea at home and had an episode ofvomiting while in the ER. No complaints of chest pain or short. No Abdominal pain or diarrhea. No dysuria or hematuria. eKG showed sinus bradycardia. CT head showed no acute intracranial process. Severe left maxillary sinusitis. Right moderateethmoid and right maxillary sinusitis.complexity of the Debris within theleft maxillary sinus. WBC 14.9. remaining electrolytes within normal limits. ENT consulted, evaluation/recommendations pending. Denies lightheadedness, dizziness, or focal deficits, currently, reports she feels like she is in an "elevator." Denies nausea vomiting or diarrhea Suspect inner ear pressure seco ndary to infection. significant clinical improvement. Patient is being discharged home in stable condition with guarded prognosis pending ENT clearance/recommendations. Exam GEN: A &OX3, no acute distress HEENT: Normocephalic. Neck is supple. Pupils reactive. Nostrils clear. Oral cavity is moist. Ears reveal no drainage. CHEST EXAMINATION: Lung suggs clear to auscultation and percussion. CARDIAC: Normal S1, S2 with no gallops. No murmurs. ABDOMEN: Soft. Bowel sounds normal. No organomegaly. Neurologically :No focal deficits noted The impression and plan of care has been dictated as directed. : I performed a history and examination of this patient, discussed the same with the dictator. I agree with the dictator's note ,documented as a scribe. Any additional findings or plans will be noted. Patient Condition at Discharge: Stable Plan - Discharge Summary Discharge Rx Participant: Yes New Discharge Prescriptions: New Cefuroxime Axetil [Ceftin] 500 mg PO BID 5 Days #10 tab Continue Naproxen Sodium [Aleve] 440 mg PO BID PRN PRN Reason: Pain Cetirizine HCl 10 mg PO DAILY Zinc 50 mg PO DAILY Sertraline HCl [Zoloft] 100 mg PO HS Fluticasone Propionate [Flonase Allergy Relief] 1 spray EA NOSTRIL BID Discontinued Amoxicillin/Potassium Clav [Augmentin 875-125 Tablet] 1 tab PO BID Discharge Medication List Naproxen Sodium [Aleve] 440 mg PO BID PRN 01/08/16 [History] Cetirizine HCl 10 mg PO DAILY 05/25/19 [History] Fluticasone Propionate [Flonase Allergy Relief] 1 spray EA NOSTRIL BID 05/25/19 [History] Sertraline HCl [Zoloft] 100 mg PO HS 05/25/19 [History] Zinc 50 mg PO DAILY 05/25/19 [History] Cefuroxime Axetil [Ceftin] 500 mg PO BID 5 Days #10 tab 05/27/19 [Rx] Follow up Appointment(s)/Referral(s): Jennie Amezcua MD [Primary Care Provider] - 3 Days
== END 2019-05-27 16:23 | disposition home or self-care (01) ==
LOC: EC 12:18 → 4SSUR 16:05
PROVIDERS: ADMIT Family Medicine; ATTEND Family Medicine
DX: J01.00 Acute maxillary sinusitis, unspecified (principal); J32.0 Chronic maxillary sinusitis; J32.2 Chronic ethmoidal sinusitis; R42 Dizziness and giddiness; J44.9 Chronic obstructive pulmonary disease, unspecified; E55.9 Vitamin D deficiency, unspecified; K64.9 Unspecified hemorrhoids; R00.1 Bradycardia, unspecified; K59.00 Constipation, unspecified; K92.1 Melena; Z98.890 Other specified postprocedural states; F41.9 Anxiety disorder, unspecified; F32.9 Major depressive disorder, single episode, unspecified; F17.200 Nicotine dependence, unspecified, uncomplicated; Z80.9 Family history of malignant neoplasm, unspecified; Z79.899 Other long term (current) drug therapy; Z88.1 Allergy status to other antibiotic agents
CPT/HCPCS: 96376; 96361 ×2; 96366 ×4; 96372 ×2; 96375 ×2; 96365; 99285; 36415; 93005; 80053; 80048; 84484; 85025 ×2; 87040; 70496; 70450; 70498; G0378 ×3; J2543 ×3; J1644 ×3; J2930; J3360; J2405; Q9967

== ENCOUNTER → 2020-06-26 | Outpatient (CLI) | payer OTHER ==
--- NOTE | 2020-06-29 14:26 | MM ---
Reason for exam: screening (asymptomatic). Last mammogram was performed 1 year and 3 months ago. Physical Findings: A clinical breast exam by your physician is recommended on an annual basis and results should be correlated with mammographic findings. MG Screening Mammo w CAD Bilateral CC and MLO view(s) were taken. Prior study comparison: April 05, 2019, bilateral MG screening mammo w CAD. September 15, 2015, bilateral MG screening mammo w CAD. The breast tissue is heterogeneously dense. This may lower the sensitivity of mammography. There are benign appearing round calcifications in the left breast. There is no discrete abnormality. ASSESSMENT: Benign, BI-RAD 2 RECOMMENDATION: Routine screening mammogram of both breasts in 1 year.
== END | disposition home or self-care (01) ==
LOC: RADMAMWWP 10:57
PROVIDERS: ATTEND Family Medicine
DX: Z12.31 Encounter for screening mammogram for malignant neoplasm of breast (principal)
CPT/HCPCS: 77067

== ENCOUNTER 2022-10-27 21:22 | Emergency (ER) | payer MEDICARE, OTHER ==
[2022-10-27 21:30] VITALS: RESP 18; TEMP 97.7
[2022-10-27] MEDS ORDERED: MORPHINE SULFATE 4 MG/ML SYRINGE IM STA (21:46)
--- NOTE | 2022-10-27 21:49 | ED ---
General Adult HPI - General Chief complaint: Extremity Injury, Upper Stated complaint: Right shoulder dislocation Source: patient Mode of arrival: ambulatory Limitations: no limitations - History of Present Illness Initial comments: 57-year-old female presents to the ER with a chief complaint of right shoulder pain. States that she was walking her dog when her dog pulled on the leash causing her to lose her balance and fall onto her right side landing primarily on her shoulder. There was no head injury at this time no LOC. Now notes pain of the right arm/shoulder. Denies other other injury at this time. Denies neck pain or back pain. No other complaints. - Related Data Home Medications Medication Instructions Recorded Confirmed Naproxen Sodium [Aleve] 440 mg PO BID PRN 01/08/16 05/25/19 Cetirizine HCl 10 mg PO DAILY 05/25/19 05/25/19 Fluticasone Propionate [Flonase 1 spray EA NOSTRIL BID 05/25/19 05/25/19 Allergy Relief] Sertraline HCl [Zoloft] 100 mg PO HS 05/25/19 05/25/19 Zinc 50 mg PO DAILY 05/25/19 05/25/19 Previous Rx's Medication Instructions Recorded cefUROXime axetiL [Ceftin] 500 mg PO BID 5 Days #10 tab 05/27/19 HYDROcodone/APAP 5-325MG [[place] 5] 1 each PO Q6HR PRN #12 tab 10/27/22 Ibuprofen [Motrin] 800 mg PO Q6HR #30 tab 10/27/22 Allergies Allergy/AdvReac Type Severity Reaction Status Date / Time ciprofloxacin [From Cipro] AdvReac PAIN IN Verified 10/27/22 21:29 ARMS AND LEGS Review of Systems ROS Statement: Those systems with pertinent positive or pertinent negative responses have been documented in the HPI. ROS Other: All systems not noted in ROS Statement are negative. Past Medical History Past Medical History: Asthma, COPD Additional Past Medical History / Comment(s): vitamin d deficiency; hemorrhoids. CHANGE IN BOWEL MOVENTS-CONSTIPATION. HAS NOTICED SOME BLOOD WITH RECENT BM History of Any Multi-Drug Resistant Organisms: None Reported Past Surgical History: Orthopedic Surgery Additional Past Surgical History / Comment(s): RT BUNIONECTOMY. COLONOSCOPY Past Anesthesia/Blood Transfusion Reactions: Motion Sickness Past Psychological History: Anxiety, Depression Smoking Status: Current every day smoker Past Alcohol Use History: None Reported Past Drug Use History: Marijuana - Past Family History Father Family Medical History: Cancer General Exam Limitations: no limitations General appearance: alert, in distress Head exam: Present: atraumatic, normocephalic (No boyd signs or raccoons eyes.) Eye exam: Present: normal appearance Neck exam: Present: other (No midline cervical spinal tenderness to palpation.) Respiratory exam: Present: normal lung sounds bilaterally Cardiovascular Exam: Present: regular rate, normal rhythm Extremities exam: Present: other (Tenderness to palpation over the right upper arm and shoulder. No obvious step-off or crepitus. Strength and sensation distal to injury intact. Radial pulses 2+.) Neurological exam: Present: alert, oriented X3 Skin exam: Present: warm, dry Course Vital Signs 10/27/22 10/27/22 21:24 23:55 Temperature 97.7 F Pulse Rate 58 L 54 L Respiratory 18 18 Rate Blood Pressure 79/55 126/74 O2 Sat by Pulse 99 97 Oximetry Medical Decision Making - Medical Decision Making Was pt. sent in by a medical professional or institution (, PA, FIRE PROTECTION SPECIALIST, urgent care, hospital, or [facility]...) When possible be specific @ -No Did you speak to anyone other than the patient for history (EMS, parent, family, police, friend...)? What history was obtained from this source @ -No Did you review nursing and triage notes (agree or disagree)? Why? @ -I reviewed and agree with nursing and triage notes Were old charts reviewed (outside hosp., previous admission, EMS record, old EKG, old radiological studies, urgent care reports/EKG's, [facility] records)? Report findings @ -No old charts were reviewed Differential Diagnosis (chest pain, altered mental status, abdominal pain women, abdominal pain men, vaginal bleeding, weakness, fever, dyspnea, syncope, headache, dizziness, GI bleed, back pain, seizure, CVA, palpatations, mental health, musculoskeletal)? @ -Differential Musculoskeletal Muscular strain, contusion, ligament sprain, fracture, arthritis, septic arthritis, bursitis, cellulitis, muscle spasm, nerve compression, DVT, arterial occlusion, herpes zoster, electrolyte abnormality, tumor.... This is not meant to be in all inclusive list EKG interpreted by me (3pts min.). @ -As above X-rays interpreted by me (1pt min.). @ -X-ray interpreted by me of the humerus and right shoulder show comminuted proximal humerus fracture. No other acute process. CT interpreted by me (1pt min.). @ -None done U/S interpreted by me (1pt. min.). @ -None done What testing was considered but not performed or refused? (CT, X-rays, U/S, labs)? Why? @ -None What meds were considered but not given or refused? Why? @ -None Did you discuss the management of the patient with other professionals (professionals i.e. , PA, FIRE PROTECTION SPECIALIST, lab, RT, psych nurse, rn social services, farm machinery set up mechanic, teacher, first aid officer, corrections caseworker)? Give summary @ -No Was smoking cessation discussed for >3mins.? @ -No Was critical care preformed (if so, how long)? @ -No Were there social determinants of health that impacted care today? How? (Homelessness, low income, unemployed, alcoholism, drug addiction, transportation, low edu. Level, literacy, decrease access to med. care, nursing home, rehab)? @ -No Was there de-escalation of care discussed even if they declined (Discuss DNR or withdrawal of care, Hospice)? DNR status @ -No What co-morbidities impacted this encounter? (DM, HTN, Smoking, COPD, CAD, Cancer, CVA, ARF, Chemo, Hep., AIDS, mental health diagnosis, sleep apnea, mo rbid obesity)? @ -None Was patient admitted / discharged? Hospital course, mention meds given and route, prescriptions, significant lab abnormalities, going to OR and other pertinent info. @ -Discharge. Patient had well-controlled pain with morphine here in the ED. X-ray remarkable for comminuted proximal humerus fracture. Patient placed in a sling and pain meds and provided follow up with or thrill. Discharged home in stable condition. Discussed return precautions with patient who verbalizes agreement. Undiagnosed new problem with uncertain prognosis? @ -No Drug Therapy requiring intensive monitoring for toxicity (Heparin, Nitro, Insulin, Cardizem)? @ -No Were any procedures done? @ -No Diagnosis/symptom? @ -Fall, proximal humerus fracture Acute, or Chronic, or Acute on Chronic? @ -Acute Uncomplicated (without systemic symptoms) or Complicated (systemic symptoms)? @ -Uncomplicated Side effects of treatment? @ -No Exacerbation, Progression, or Severe Exacerbation? @ -No Poses a threat to life or bodily function? How? (Chest pain, USA, NC, pneumonia, PE, COPD, DKA, ARF, appy, cholecystitis, CVA, Diverticulitis, Homicidal, Suicidal, threat to staff... and all critical care pts) @ -No Disposition Clinical Impression: Right humeral fracture Disposition: HOME SELF-CARE Condition: Good Instructions (If sedation given, give patient instructions): Arm Fracture in Adults (ED) Additional Instructions: Please return to the Emergency Department if symptoms worsen or any other concerns. Follow up with orthopedics Prescriptions: Ibuprofen [Motrin] 800 mg PO Q6HR #30 tab HYDROcodone/APAP 5-325MG [[place] 5] 1 each PO Q6HR PRN #12 tab PRN Reason: Pain Is patient prescribed a controlled substance at d/c from ED?: Yes When asked, does pt state using other controlled substances?: No If prescribed controlled substance>3 days was MAPS reviewed?: Prescribed <3 Days If opioid is for acute pain is fill amount 7 days or less?: Yes If Rx opioid, was Start Talking consent form obtained?: Yes Referrals: Jennie Amezcua MD [Primary Care Provider] - 1-2 days Felix Brewster MD [STAFF PHYSICIAN] - 1-2 days Time of Disposition: 23:33
[2022-10-27] MEDS ORDERED: ACET/COD 300 MG/30 MG STARTER PACK 6 TAB BTL PO STA (23:30)
--- NOTE | 2022-10-27 23:48 | XR ---
EXAM: XR Right Shoulder Complete, 2 or More Views CLINICAL HISTORY: ITS.REASON XR Reason: fall shoulder pain TECHNIQUE: Two or more views of the right shoulder. COMPARISON: No previous studies. FINDINGS: Bones/joints: Comminuted fracture of the right humeral head. Moderate hypertrophic changes right, clavicular joint. Scapula is unremarkable. Regional ribs, and the soft tissues are unremarkable. No dislocation. Soft tissues: See above. IMPRESSION: 1. Fracture of the head of the right humerus predominate at the greater tuberosity. 2. There is a comminuted fracture. 3. Surgical consultation is advised.
--- NOTE | 2022-10-27 23:49 | XR ---
EXAM: XR Right Humerus, 2 or More Views CLINICAL HISTORY: ITS.REASON XR Reason: fall shoulder pain TECHNIQUE: Frontal and lateral views of the right humerus. COMPARISON: No previous studies. FINDINGS: Bones/joints: Comminuted fracture of the greater tuberosity of the right humeral head. Otherwise, the humerus is unremarkable. No dislocation. Soft tissues: Soft tissues are unremarkable. IMPRESSION: Comminuted fracture of the greater tuberosity of the right humeral head.
[2022-10-27 23:56] VITALS: BP 126/74; PULSE 54
== END 2022-10-27 23:56 | disposition home or self-care (01) ==
LOC: EC 21:22
DX: S42.301A Unspecified fracture of shaft of humerus, right arm, initial encounter for closed fracture (principal); J44.9 Chronic obstructive pulmonary disease, unspecified; F41.9 Anxiety disorder, unspecified; F32.A Depression, unspecified; F17.200 Nicotine dependence, unspecified, uncomplicated; F12.90 Cannabis use, unspecified, uncomplicated; Z79.51 Long term (current) use of inhaled steroids; Z88.1 Allergy status to other antibiotic agents; Z79.899 Other long term (current) drug therapy; W01.0XXA Fall on same level from slipping, tripping and stumbling without subsequent striking against object, initial encounter; Y93.K1 Activity, walking an animal
CPT/HCPCS: 73030; 73060; 99283; 96372; J2270

== ENCOUNTER → 2022-11-02 | Outpatient (CLI) | payer MEDICARE, OTHER | END | disposition home or self-care (01) | LOC: LABWHC1 16:18 | PROVIDERS: ATTEND Orthopaedic Surgery | DX: S42.251A Displaced fracture of greater tuberosity of right humerus, initial encounter for closed fracture (principal); M25.511 Pain in right shoulder; X58.XXXA Exposure to other specified factors, initial encounter | CPT/HCPCS: 36415; 82306 ==

== ENCOUNTER → 2023-05-29 | Outpatient (CLI) | payer MEDICARE, OTHER ==
--- NOTE | 2023-05-31 09:40 | MM ---
Reason for Exam: Screening (asymptomatic). Last mammogram was performed 1 year(s) and 1 month(s) ago. Patient History: Menarche at age 10. First Full-Term at age 25. Postmenopausal. Patient has history of breast feeding. Risk Values: Roxanne 5 year model risk: 1.6%. NCI Lifetime model risk: 9.3%. Prior Study Comparison: 04/05/2019 Bilateral Screening Mammogram, [facility]. 06/26/2020 Bilateral Screening Mammogram, [facility]. 05/06/2022 Bilateral MG screening mammo w CAD, [facility]. Tissue Density: The breasts are heterogeneously dense, which may obscure small masses. Findings: Analyzed By CAD. There is no suspicious group of microcalcifications or new suspicious mass. Benign-appearing calcifications left breast. Overall Assessment: Benign, BI-RAD 2 Management: Screening Mammogram of both breasts in [address] [facility] will attempt to contact patient to return for supplemental views and ultrasound if indicated. Patient should continue monthly self-breast exams. A clinical breast exam by your physician is recommended on an annual basis. This exam should not preclude additional follow-up of suspicious palpable abnormalities. Note on Roxanne scores and lifetime risk: 1. A Roxanne score greater than 3% is considered moderate risk. If this is the case, consider specialist referral to assess eligibility for a risk reducing agent. 2. If overall lifetime risk for the development of breast cancer is 20% or higher, the patient may qualify for future screening with alternating mammogram and breast MRI. Electronically signed and approved by: Josiah Reyes DO
== END | disposition home or self-care (01) ==
LOC: RADMAMWWP 08:20
PROVIDERS: ATTEND Family Medicine
DX: Z12.31 Encounter for screening mammogram for malignant neoplasm of breast (principal); Z78.0 Asymptomatic menopausal state
CPT/HCPCS: 77067

== ENCOUNTER → 2023-11-28 | Outpatient (CLI) | payer MEDICARE ==
--- NOTE | 2023-11-28 10:57 | CT ---
EXAMINATION TYPE: CT sinus wo con CT DLP: 501 mGycm, Automated exposure control for dose reduction was used. DATE OF EXAM: 11/28/2023 10:42 AM COMPARISON: CT brain 05/25/2019. 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 Ordering dr is requesting comparison to 2019 brain, atypical L max and etmoi d chronic sinusitis-fungal vs mucocele. CONTRAST: None. TECHNIQUE: Multiple thin axial images were obtained through the paranasal sinuses without the use of IV contrast. Additional coronal and sagittal reformatted images were submitted for evaluation. FINDINGS: Frontal sinuses: Normally developed and aerated. Frontal Recess: Opacified Maxillary Sinuses: Normally developed. Mild mucosal thickening of the right maxillary sinus with syne chiae identified. Complete opacification left back to sinus with hypertrophy of the maxillary main. There is a heterogenous internal opacities within the maxillary sinus. Periapical lucency involving the right maxillary second molar. The floor the right maxillary sinus ap pears grossly intact. Left first molar is not visualized with soft tissue density in this region conn ecting to the maxillary sinus (series 5 image 33). Maxillary Infundibula([facility]): no left Shawn cell. Small right Shawn cell. Both ostiomeatal complexes are opacified. Ethmoid sinuses: Normally developed. Moderate mucosal thickening bilaterally. Ethmoidal notch: Protec jazmine and abutting the lateral lamina. Sphenoid sinuses: Normally developed and aerated. Minimal mucosal thickening of the left sphenoid sin us. Mild mucosal thickening of the superior aspect of the right sphenoid sinus. There is sellar sphen oid sinus pneumatization without evidence of dehiscence. No dehiscence of carotid canal. No evidence of optic nerve dehiscence within the sphenoid sinus. Sphenoethmoidal recesses: Opacified. Nasal septum: Deviated to the right with septal spurring. Nasal Turbinates: A lovely bullosa defect is seen involving the left middle turbinate. Mastoid air cells & middle ears: The air cells are clear. The middle ears are grossly unremarkable. Modified Soft tissues & Brain: Partially seen without gross abnormality. Globes are intact. Other: Cribriform plate demonstrates symmetric Keros classification type 2 cribriform plate. No evidence of bony dehiscence of skull base. Lamina papyracea is intact without evidence of remote orbital fracture or orbital prolapse into the e thmoid sinus. IMPRESSION: 1. Similar moderate paranasal sinus mucosal disease with complete opacification of the left maxillary sinus again. Findings suggestive of chronic left maxillary sinusitis with complex internal debris. E tiologies include atypical infection with hemorrhage/debris versus fungal. Nonvisualization of the le ft maxillary first molar with communication suggested between the maxillary sinus and dental cavity w hich may be because of chronic sinusitis. Additional periapical lucency involving the right maxillary second molar. Dental evaluation is recommended. 2. The ostiomeatal units, frontonasal and sphenoethmoidal recesses are all opacified. Right maxillary Shawn cell identified. [facility], , 11/28/2023 10:55 AM
== END | disposition home or self-care (01) ==
LOC: RADCTMAIN 09:56
PROVIDERS: ATTEND Otolaryngology
DX: J32.0 Chronic maxillary sinusitis
CPT/HCPCS: 70486

== ENCOUNTER → 2024-06-07 | Outpatient (CLI) | payer MEDICARE ==
--- NOTE | 2024-06-07 09:36 | MM ---
Reason for Exam: Screening (asymptomatic). Last screening mammogram was performed 12 month(s) ago. Patient History: Menarche at age 10. First Full-Term at age 25. Postmenopausal. Patient has history of breast feeding. Risk Values: Roxanne 5 year model risk: 1.7%. NCI Lifetime model risk: 9.1%. Prior Study Comparison: 06/26/2020 Bilateral Screening Mammogram, [facility]. 05/06/2022 Bilateral MG screening mammo w CAD, [facility]. 05/29/2023 Bilateral MG screening mammo w CAD, [facility]. Tissue Density: The breasts are heterogeneously dense, which may obscure small masses. Findings: Analyzed By CAD. There is no suspicious group of microcalcifications or new suspicious mass in either breast. Surgical clips left breast. Benign appearing calcifications. Stable lymph node in the axillary calcifications. Overall Assessment: Benign, BI-RAD 2 Management: Screening Mammogram of both breasts in 1 year. . Patient should continue monthly self-breast exams. A clinical breast exam by your physician is recommended on an annual basis. This exam should not preclude additional follow-up of suspicious palpable abnormalities. Note on Roxanne scores and lifetime risk: 1. A Roxanne score greater than 3% is considered moderate risk. If this is the case, consider specialist referral to assess eligibility for a risk reducing agent. 2. If overall lifetime risk for the development of breast cancer is 20% or higher, the patient may qualify for future screening with alternating mammogram and breast MRI. [facility], , 06/07/2024 9:33 AM. Electronically signed and approved by: Robles Bustos M.D. [facility]
== END | disposition home or self-care (01) ==
LOC: RADMAMWWP 08:54
PROVIDERS: ATTEND Family Medicine
DX: Z12.31 Encounter for screening mammogram for malignant neoplasm of breast (principal); R92.333 Mammographic heterogeneous density, bilateral breasts; Z78.0 Asymptomatic menopausal state
CPT/HCPCS: 77067